=== PATIENT | male | born 1955 | race Caucasian/White ===

== ENCOUNTER 2025-05-05 19:17 | Emergency (ER) | payer MEDICARE ==
[~2025-05-05] VITALS: Ht 175.3 cm; Wt 82.1 kg
[2025-05-05 19:43] LABS: APPEARANCE,URINE CLEAR (CLEAR); GLUCOSE, URINE (UA) NEGATIVE (NEGATIVE); LEUKOCYTE ESTERASE ,URINE 25 Leu/uL (NEGATIVE); NITRATE,URINE NEGATIVE (NEGATIVE); OCCULT BLOOD,URINE SMALL (NEGATIVE)
[2025-05-05 19:44] LABS: ADD UA MICROSCOPIC YES
[2025-05-05 19:48] LABS: HYALINE CASTS, URINE 0-1 /LPF (0-1 /LPF); SQUAMOUS EPITHELIAL CELL,UR RARE /HPF (0-2)
--- NOTE | 2025-05-05 19:55 | ERN ---
General Chief Complaint: Abdominal Pain Stated Complaint: C/O LLQ PAIN WITH SWELLING, CONSTIPATION, Time Seen by MD: 19:19 Source: patient History of Present Illness Initial Comments 69-year-old male with a past medical history of diverticulitis comes in with left lower quadrant pain feelings of constipation and intermittent fevers. Timing/Duration: 24 hours Severity: mild Allergies: Coded Allergies: No Known Allergies (Unverified Allergy, Unknown, 05/05/25) Past Medical History Past Medical History: Diverticulosis, High Cholesterol, Hypertension Past Surgical History: Other Constitutional: (+) fever EENTM: (-) eye pain, (-) blurred vision, (-) tearing, (-) double vision, (-) ear pain, (-) ear discharge, (-) nose pain, (-) nose congestion, (-) throat pain, (-) Throat swelling, (-) mouth pain, (-) tooth pain, (-) mouth swelling, (-) other documentation Respiratory: (-) cough, (-) orthopnea, (-) short of breath, (-) stridor, (-) wheezing, (-) other documentation Cardiovascular: (-) chest pain, (-) edema, (-) palpitations, (-) syncope, (-) dyspnea on exertion, (-) other documentation Gastrointestinal/Abdominal: (+) abdominal distention, (+) constipation Genitourinary: (-) penile discharge, (-) dysuria, (-) frequency, (-) hematuria, (-) pain, (-) other documentation Musculoskeletal: (-) Neck pain, (-) back pain, (-) Flank Pain, (-) joint pain, (-) joint swelling, (-) muscle pain, (-) muscle stiffness, (-) gout, (-) other documentation Immunological/Allergic: (+) food allergy, (+) grass allergy, (+) mold allergy, (+) pollen allergy, (+) HIV/AIDS, (+) transplant, (+) othe documentation Physical Exam General Appearance: (+) mild distress Orientation: (+) alert, (+) oriented x 3 Head/Face Trauma: No Eye: bilateral eye normal inspection, bilateral eye PERRL, bilateral eye EOMI Ear, Nose, Throat: (+) hearing grossly normal, (+) normal ENT inspection, (+) moist mucous membraine Neck: (+) normal inspection, (+) supple, (+) full range of motion Respiratory: (+) chest non-tender, (+) lungs clear, (+) well ventilated Heart: (+) regular, (+) no gallop Vascular: (+) no edema, (+) normal peripheral pulse, (+) no JVD Gastrointestinal: (+) soft, (+) bowel sound present, (+) tender Gastrointestinal Comment Left lower quadrant does seem to have some muscle tension. It is tender. And palpating the right lower quadrant causes pain in the left lower quadrant. Results Laboratory and Microbiology Lab and Micro Result Laboratory Tests Test 05/05/25 19:23 05/05/25 19:51 Urine Color YELLOW (YELLOW) Urine Appearance CLEAR (CLEAR) Urine pH 6.0 (5.0-8.0) Urine Specific [place] 1.015 (1.001-1.031) Urine Protein 10 mg/dL (NEGATIVE) H Urine Glucose (UA) NEGATIVE mg/dL (NEGATIVE) Urine Ketones 5 mg/dL (NEGATIVE) H Urine Occult Blood SMALL (NEGATIVE) H Urine Nitrate NEGATIVE (NEGATIVE) Urine Bilirubin NEGATIVE mg/dL (NEGATIVE) Urine Urobilinogen 0.2 mg/dL (0.2-1.0) Urine Leukocyte Esterase 25 Genaro/uL (NEGATIVE) H Urine RBC 2-5 /HPF (0-1) H Urine WBC 2-5 /HPF (0-1) H Urine Squamous Epithelial Cells RARE /HPF (0-2) Urine Bacteria None /HPF (None Seen) Urine Hyaline Casts 0-1 /LPF (0-1 /LPF) White Blood Count 16.6 K/uL (4.8-10.8) H Red Blood Count 4.95 MIL/uL (4.50-6.20) Hemoglobin 15.3 g/dL (14.0-18.0) Hematocrit 45.8 % (42-54) Mean Corpuscular Volume 92.5 fL (79-99) Mean Corpuscular Hemoglobin 30.9 pg (27.0-33.0) Mean Corpuscular Hemoglobin Concent 33.4 g/dL (32.0-36.0) Red Cell Distribution Width 13.5 % (11.0-15.5) Platelet Count 250 K/uL (130-400) Mean Platelet Volume 9.3 fL (7.5-10.5) Immature Granulocyte % (Auto) 0.4 % (0-1) Neutrophils (%) (Auto) 71.8 % (40.0-77.0) Lymphocytes (%) (Auto) 18.6 % (21.0-51.0) L Monocytes (%) (Auto) 7.5 % (3.0-13.0) Eosinophils (%) (Auto) 1.3 % (0.0-8.0) Basophils (%) (Auto) 0.4 % (0.0-5.0) Neutrophils # (Auto) 11.9 K/uL (1.8-7.7) H Lymphocytes # (Auto) 3.1 K/uL (1.0-4.8) Monocytes # (Auto) 1.3 K/uL (0.1-1.0) H Eosinophils # (Auto) 0.22 K/uL (0.00-0.70) Basophils # (Auto) 0.06 K/uL (0.00-0.20) Absolute Immature Granulocyte (auto 0.07 K/uL (0-1) Nucleated Red Blood Cells 0.0 % (0.0-0.19) Sodium Level 135 mmol/L (136-145) L Potassium Level 3.4 mmol/L (3.5-5.1) L Chloride Level 96 mmol/L (101-111) L Carbon Dioxide Level 29 mmol/L (21-32) Blood Urea Nitrogen 19 mg/dL (7-18) H Creatinine 1.0 mg/dL (0.5-1.3) Glomerular Filtration Rate Calc 82 mL/min (>90) Random Glucose 106 mg/dL (70-105) H Total Calcium 9.1 mg/dL (8.5-10.1) MDM MDM: Differential diagnosis: Diverticulitis, constipation, sigmoid torsion, muscle spasm, renal colic, UTI, pyelonephritis, Rationale: Tests considered and ordered secondary to shared decision making include: Previous outside records reviewed: Old ER visits. Risk of complication and/or morbidity or mortality of patient management: None Medications-Per medication reconciliation Need for hospitalization: Patient does meet criteria for hospitalization. Need for emergency major/minor surgery: No There are no social concerns with this patient. Prescription drug management Prescriptions will include symptomatic care Patient's prior external medical records from other ER visits were reviewed by me as indicated. Prior testing and results from previous visits were reviewed. Prior tests were taken into account with medical decision making and resource utilization, independent historian/historians were used to obtain complete [facility] history. I independently interpreted the test that were performed, results were reviewed by me and considered findings on radiology if ordered. Patient with a left-sided diverticulitis no abscess no free fluid no perforation. His pain is controlled with Toradol. I will discharge him with oral antibiotics. ED Course Orders Procedure Category Date Status Time Urinalysis Profile LAB 05/05/25 Complete 19:31 Cbc With Differential LAB 05/05/25 Complete 19:45 Basic Metabolic Panel LAB 05/05/25 Complete 19:45 Morphine 2mg Syg PHA 05/05/25 Complete (Morphine 2mg Syg) 20:00 Ct Abdomen/Pelvis CT 05/05/25 Resulted W/Contrast 20:39 Iohexol (Omnipaque) PHA 05/05/25 Complete 20:44 Zosyn 3.375gm+Ns 50ml PHA 05/05/25 Complete (Zosyn 3.375gm+Ns 20:57 Ketorolac PHA 05/05/25 Complete Tromethamine 30mg/Ml 22:00 Current Medications Medications (Trade) Dose Ordered Sig/Oenyda Route PRN Reason Start Time Stop Time Status Last Admin Dose Admin Iohexol (Omnipaque) 75 ml STK-MED ONCE IV 05/05/25 20:44 05/05/25 20:45 DC Ketorolac Tromethamine (toRADol) 30 mg ONCE ONCE IVP 05/05/25 22:00 05/05/25 22:01 DC 05/05/25 22:17 Morphine Sulfate (morPHINE 2MG SYG) 2 mg ONCE ONCE IVP 05/05/25 20:00 05/05/25 20:01 DC 05/05/25 20:03 Piperacillin Sod/ Tazobactam Sod (Zosyn 3.375gm+NS 50ml) 3.375 gm ONCE STAT IV 05/05/25 20:57 05/05/25 21:01 DC 05/05/25 21:22 Vital Signs Date Time Temp Pulse Resp B/P (MAP) Pulse Ox O2 Delivery O2 Flow Rate FiO2 05/05/25 21:31 98.2 82 15 136/82 97 Room Air* 0 21 05/05/25 19:29 98.2 120 15 127/85 94 Room Air* 0 21 05/05/25 19:20 98.4 127 20 129/80 96 Room Air DX & DISP Disposition: Discharge Departure Impression: Primary Impression: Diverticulitis large intestine w/o perforation or abscess w/o bleeding Condition: Stable Scripts Metronidazole (Metronidazole) 500 Mg Tablet 1 TAB PO BID for 7 Days, #14 TAB 0 Refills Prov: LIANG BACA MD 05/05/25 Sulfamethoxazole/Trimethoprim (Bactrim Ds Tablet) 800 Mg-160 Mg Tablet 1 TAB PO BID for 7 Days, #14 TAB 0 Refills Prov: LIANG BACA MD 05/05/25 Ketorolac Tromethamine (Toradol) 10 Mg Tab 1 TAB PO Q6HPRN PRN for pain for 5 Days, #20 TAB 0 Refills Prov: LIANG BACA MD 05/05/25 Additional Instructions: You have a bout of diverticulitis that is mild. It can be managed as an outpatient with the antibiotics I have sent to your pharmacy. I have also written a prescription for Toradol for pain control. For the next few days I recommend only clear liquid diet which can include soups. Please follow-up with your primary care physician in 3-4 days to make sure your condition is improving. In addition if you have not done so I recommend getting a colonoscopy. This would characterize the diverticulosis and also screen for colon cancer. You are at the age where you should be getting regular colonoscopies or tests for colon cancer. Please discuss this with your primary care physician. Please return if you are unable to tolerate liquids if you have a fever if your pain suddenly gets worse if you feel weak dizzy or have a high fever increased abdominal distention. Referrals: NONE (PCP) LIANG BACA MD May 05, 2025 19:54
[2025-05-05 19:58] LABS: IMMATURE GRANULOCYTE ABSOLUTE 0.07 K/uL (0-1); NUCLEATED RED BLOOD CELLS 0.0 % (0.0-0.19); PLATELET COUNT (AUTO) 250 K/uL (130-400); RED BLOOD CELL COUNT(AUTO) 4.95 MIL/uL (4.50-6.20); RED CELL DISTRIBUTION WIDTH 13.5 % (11.0-15.5); WHITE BLOOD COUNT (AUTO) 16.6 K/uL (4.8-10.8)
[2025-05-05 20:07] LABS: CREATININE 1.0 mg/dL (0.5-1.3); GLOMERULAR FILTR. RATE CALC 82.0 mL/min (>90); GLUCOSE,RANDOM 106.0 mg/dL (70-105); SODIUM SERUM 135.0 mmol/L (136-145); UREA NITROGEN, BLOOD 19.0 mg/dL (7-18)
[2025-05-05] MEDS ORDERED: IOHEXOL-350 75 ML VIAL IV ONE (20:44)
[2025-05-05] MEDS: ZOSYN 3.375GM +NS 50ML IV STA (21:22)
--- NOTE | 2025-05-05 21:26 | HMCIMG ---
EXAM: CT Abdomen and Pelvis with IV contrast. CLINICAL HISTORY: Diverticulitis, abdominal pain. TECHNIQUE: Axial computed tomography images of the abdomen and pelvis with intravenous contrast. COMPARISON: None. FINDINGS: LUNG BASES: The lung bases appear clear except for bibasilar streaky atelectasis and a 3.3 mm subpleural nodule in the left lower lobe (axial image 13/). No pleural effusions are seen. There is an incompletely imaged 1.8 cm pericardial lipoma abutting the right atrium (axial image ). LIVER: Fatty infiltration. GALLBLADDER AND BILE DUCTS: The gallbladder appears within normal limits. No radiopaque gallstones are seen. No biliary ductal dilatation is evident. PANCREAS: Unremarkable. SPLEEN: Unremarkable. ADRENAL GLANDS: Unremarkable. KIDNEYS, URETERS, AND BLADDER: The kidneys appear within normal limits. There is no hydronephrosis or hydroureter. No urinary calculi are seen. On the delayed phase images, there is opacification of the renal collecting system and the urinary bladder. STOMACH AND BOWEL: There are multiple distal colonic diverticuli with focal short-segment mural thickening of the distal descending colon, demonstrating surrounding fat stranding and fascial thickening consistent with acute diverticulitis. The small bowel appears normal. APPENDIX: Not visualised. PERITONEUM: No abscess, gross free fluid, or free air. LYMPH NODES: No lymphadenopathy is evident. REPRODUCTIVE: Unremarkable. VASCULATURE: The aorta demonstrates atheromatous calcifications without an aneurysm. BONES: No aggressive appearing osseous lesion. No acute osseous pathology evident. SOFT TISSUE: Unremarkable. IMPRESSION: Findings are consistent with acute diverticulitis involving the distal descending colon without perforation or abscess. No other significant acute abnormality. Small 3.3 mm subpleural nodule in the left lower lobe. Lung RADS category 2 with recommendation of 12 months LDCT screening. /[place]
[2025-05-05] MEDS ORDERED: SULF1TAB42 PO (22:45)
[2025-05-05] MEDS ORDERED: KETO10 PO (22:45)
[2025-05-05] MEDS ORDERED: METR-172 PO (22:46)
[2025-05-05 22:53] VITALS: BP 104/60; PULSE 96; RESP 17; TEMP 99.2; O2SAT 96
== END 2025-05-05 23:03 | disposition home or self-care (01) ==
LOC: EDH 19:17
DX: K57.32 Diverticulitis of large intestine without perforation or abscess without bleeding (principal); E78.00 Pure hypercholesterolemia, unspecified; I10 Essential (primary) hypertension
CPT/HCPCS: 99285; 74177; 96365; 96375; 80048; 85025; 81001; 36415; J1885; J2270; J2543; Q9967